=== PATIENT | female | born 1995 | race Hispanic/Latino ===

== ENCOUNTER 2017-01-24 19:22 | Emergency (ER) | payer SELFPAY | END 2017-01-24 20:42 | disposition home or self-care (01) | LOC: ERS 19:22 | DX: H60.91 Unspecified otitis externa, right ear (principal); F17.210 Nicotine dependence, cigarettes, uncomplicated | CPT/HCPCS: 99282 ==

== ENCOUNTER 2017-01-27 20:12 | Emergency (ER) | payer SELFPAY | END 2017-01-27 21:17 | disposition home or self-care (01) | LOC: ERS 20:12 | DX: H66.41 Suppurative otitis media, unspecified, right ear (principal); H72.91 Unspecified perforation of tympanic membrane, right ear; F17.210 Nicotine dependence, cigarettes, uncomplicated | CPT/HCPCS: 99282 ==